=== PATIENT | female | born 1955 | race Caucasian/White ===

== ENCOUNTER 2021-04-01 20:23 | Emergency (ER) | payer MEDICARE, OTHER ==
[~2021-04-01] VITALS: Ht 157.5 cm; Wt 111.1 kg
[~2021-04-01 20:23] MED LIST: HUMIRA20 MG/0.4; LISINOPRIL10 MG; NAPROSYN500 MG PO; NORCO 5-325 TA1 EAC1 PO; PRAVASTATIN SOD20 MG; ZYRTEC10 M5
[2021-04-01] MEDS ORDERED: NASAL ALLERGY S13 ML (20:34)
[2021-04-01] MEDS ORDERED: TALTZ SYRI80 MG/1 ML (20:35)
[2021-04-01 20:57] LABS: ABSOLUTE BASOPHILS 0.1 thou/uL (0.0-0.2); ABSOLUTE EOSINOPHILS 0.2 thou/uL (0.0-0.7); ABSOLUTE LYMPHOCYTES 2.1 thou/uL (0.8-5.3); ABSOLUTE MONOCYTES 0.7 thou/uL (0.0-1.2); ABSOLUTE NEUTROPHILS 5.8 thou/uL (1.6-8.1); BASOPHILS 1.1 %; EOSINOPHILS 1.7 %; HEMATOCRIT 40.2 % (37.0-47.0); HEMOGLOBIN 13.4 gm/dL (12.0-15.0); LYMPHOCYTES 23.9 %; MCH 29.2 pg (26.0-34.0); MCHC 33.4 g/dL (28.0-37.0); MCV 87.5 fL (80.0-100.0); MONOCYTES 7.7 %; NUCLEATED RBCS 0 /100WBC; PLATELET COUNT* 286 thou/uL (150-400); POLYS 65.6 %; RDW-CV 13.7 % (10.5-14.5); WBC 8.8 thou/uL (4.0-11.0)
[2021-04-01 21:05] LABS: CALCIUM 9.2 mg/dL (8.5-10.1); CREATININE 0.9 mg/dL (0.6-1.3); POTASSIUM 4.4 mmol/L (3.5-5.1)
[2021-04-01 21:10] LABS: ALBUMIN 3.3 g/dL (3.4-5.0); TOTAL BILIRUBIN 0.3 mg/dL (<0.1-1.0); TOTAL PROTEIN 7.8 g/dL (6.4-8.2)
[2021-04-01 22:32] LABS: URINE BILIRUBIN NEGATIVE (Negative); URINE BLOOD NEGATIVE (Negative); URINE CLARITY CLEAR; URINE COLOR YELLOW; URINE GLUCOSE-RANDOM NEGATIVE (Negative); URINE KETONES NEGATIVE (Negative); URINE LEUKOCYTES-REFLEX NEGATIVE (Negative); URINE NITRITE-REFLEX NEGATIVE (Negative); URINE PROTEIN NEGATIVE (Negative); URINE SPECIFIC GRAVITY <= 1.005 (1.005-1.030); URINE UROBILINOGEN 0.2 E.U./dl (0.2-1.0)
[2021-04-01] MEDS ORDERED: FLAGYL500 M1 PO (22:47)
[2021-04-01] MEDS ORDERED: CIPROFLOXACIN500 M1 PO (22:47)
[2021-04-01] MEDS ORDERED: ENDOCET 7.5-321 EACH PO (22:47)
[2021-04-01] MEDS ORDERED: ZOFRAN ODT4 MG PO (22:47)
[2021-04-01 23:00] VITALS: BP 147/69
--- NOTE | 2021-04-03 09:01 | EKG ---
[place] [address] ELECTROCARDIOGRAM REPORT Name: GENEVA CROWLEY Room: 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
== END 2021-04-01 23:00 | disposition home or self-care (01) ==
LOC: M.ERS 20:23
PROVIDERS: Emergency Medicine
DX: K57.32 Diverticulitis of large intestine without perforation or abscess without bleeding (principal); I10 Essential (primary) hypertension; L40.9 Psoriasis, unspecified; Z90.711 Acquired absence of uterus with remaining cervical stump; Z79.899 Other long term (current) drug therapy; Z88.8 Allergy status to other drugs, medicaments and biological substances

== ENCOUNTER 2021-04-05 21:44 | Inpatient (IN) | payer MEDICARE, OTHER ==
[~2021-04-05] VITALS: Ht 157.5 cm; Wt 111.1 kg
[~2021-04-05 21:44] MED LIST changes: +CIPROFLOXACIN500 M1 PO; +ENDOCET 7.5-321 EACH PO; +FLAGYL500 M1 PO; -LISINOPRIL10 MG; +LISINOPRIL10 MG PO; +NASAL ALLERGY S13 ML; +TALTZ SYRI80 MG/1 ML; +ZOFRAN ODT4 MG PO
[2021-04-05 21:49] VITALS: BP 151/67
[2021-04-05 21:59] LABS: URINE BILIRUBIN NEGATIVE (Negative); URINE BLOOD NEGATIVE (Negative); URINE CLARITY CLEAR; URINE COLOR YELLOW; URINE GLUCOSE-RANDOM NEGATIVE (Negative); URINE KETONES NEGATIVE (Negative); URINE LEUKOCYTES NEGATIVE (Negative); URINE NITRITE NEGATIVE (Negative); URINE PROTEIN TRACE (Negative); URINE SPECIFIC GRAVITY >= 1.030 (1.005-1.030); URINE UROBILINOGEN 0.2 E.U./dl (0.2-1.0)
[2021-04-05 22:22] LABS: ABSOLUTE BASOPHILS 0.1 thou/uL (0.0-0.2); ABSOLUTE EOSINOPHILS 0.1 thou/uL (0.0-0.7); ABSOLUTE LYMPHOCYTES 1.9 thou/uL (0.8-5.3); ABSOLUTE MONOCYTES 0.7 thou/uL (0.0-1.2); ABSOLUTE NEUTROPHILS 6.5 thou/uL (1.6-8.1); HEMATOCRIT 38.8 % (37.0-47.0); HEMOGLOBIN 13.1 gm/dL (12.0-15.0); LYMPHOCYTES 20.4 %; MCH 29.3 pg (26.0-34.0); MCHC 33.7 g/dL (28.0-37.0); MCV 86.9 fL (80.0-100.0); MONOCYTES 7.5 %; MPV 6.6 fl. (7.2-11.1); NUCLEATED RBCS 0 /100WBC; PLATELET COUNT* 314 thou/uL (150-400); POLYS 70.1 %; RBC 4.46 mil/uL (4.20-5.00); RDW-CV 13.5 % (10.5-14.5); WBC 9.3 thou/uL (4.0-11.0)
[2021-04-05 22:32] LABS: CALCIUM 8.9 mg/dL (8.5-10.1); CREATININE 1.5 mg/dL (0.6-1.3); POTASSIUM 4.1 mmol/L (3.5-5.1)
[2021-04-05 22:35] LABS: ALBUMIN 3.1 g/dL (3.4-5.0); TOTAL BILIRUBIN 0.2 mg/dL (<0.1-1.0); TOTAL PROTEIN 7.2 g/dL (6.4-8.2)
[2021-04-06 05:30] VITALS: BP 136/87
[2021-04-06 09:30] VITALS: BP 124/63
[2021-04-06 13:21] LABS: ABSOLUTE EOSINOPHILS 0.1 thou/uL (0.0-0.7); ABSOLUTE LYMPHOCYTES 1.6 thou/uL (0.8-5.3); ABSOLUTE MONOCYTES 0.6 thou/uL (0.0-1.2); ABSOLUTE NEUTROPHILS 4.3 thou/uL (1.6-8.1); BASOPHILS 0.4 %; EOSINOPHILS 1.6 %; HEMATOCRIT 36.4 % (37.0-47.0); HEMOGLOBIN 12.2 gm/dL (12.0-15.0); LYMPHOCYTES 23.5 %; MCH 29.4 pg (26.0-34.0); MCHC 33.5 g/dL (28.0-37.0); MCV 87.6 fL (80.0-100.0); MONOCYTES 9.6 %; MPV 6.6 fl. (7.2-11.1); NUCLEATED RBCS 0 /100WBC; PLATELET COUNT* 275 thou/uL (150-400); POLYS 64.9 %; RBC 4.16 mil/uL (4.20-5.00); RDW-CV 13.4 % (10.5-14.5); WBC 6.7 thou/uL (4.0-11.0)
[2021-04-06 13:38] LABS: ALBUMIN 2.7 g/dL (3.4-5.0); CALCIUM 8.5 mg/dL (8.5-10.1); POTASSIUM 4.1 mmol/L (3.5-5.1); TOTAL BILIRUBIN 0.2 mg/dL (<0.1-1.0); TOTAL PROTEIN 6.5 g/dL (6.4-8.2)
[2021-04-06 14:55] LABS: AMP/METHAMP Negative (Negative); BARBITURATES Negative (Negative); BENZODIAZEPINES Negative (Negative); COCAINE Negative (Negative); METHADONE Negative (Negative); OPIATES Negative (Negative); PCP Negative (Negative); THC Negative (Negative)
[2021-04-06] MEDS ORDERED: PHENERGAN 25 MG25 MG PO (15:52)
[2021-04-06] MEDS ORDERED: OMEPRAZOLE40 MG PO (15:53)
[2021-04-06] MEDS ORDERED: AZITHROMYCIN500 MG PO (15:54)
[2021-04-06 15:59] VITALS: BP 154/75
--- NOTE | 2021-04-06 17:25 | EKG ---
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1955 Requested By: Jim Badillo Order Number: [id number] MD: Greg Harrington Measurements Intervals [place] Rate: 119 P: 59 SC: 177 QRS: -39 QRSD: 84 T: 144 QT: 293 QTc: 413 Interpretive Statements Sinus tachycardia Left anterior fascicular block Baseline wander in lead(s) II,III,aVR,aVL,aVF Compared to ECG 04/01/2021 20:30:34 No significant changes noted Electronically Signed On 04-06-2021 17:25:35 CDT by Greg Harrington [email or web address] <ELECTRONICALLY SIGNED> By: Greg Harrington MD, FACC 04/06/21 1725 54 54 Greg Harrington MD, FAC /EPI
[2021-04-06 17:30] VITALS: BP 149/72
[2021-04-06 20:40] VITALS: BP 149/72
[2021-04-06 21:30] VITALS: BP 155/67
[2021-04-07 05:06] LABS: ABSOLUTE BASOPHILS 0.1 thou/uL (0.0-0.2); ABSOLUTE EOSINOPHILS 0.1 thou/uL (0.0-0.7); ABSOLUTE MONOCYTES 0.6 thou/uL (0.0-1.2); ABSOLUTE NEUTROPHILS 4.4 thou/uL (1.6-8.1); BASOPHILS 0.8 %; EOSINOPHILS 1.8 %; HEMATOCRIT 37.1 % (37.0-47.0); HEMOGLOBIN 12.5 gm/dL (12.0-15.0); MCH 29.3 pg (26.0-34.0); MCHC 33.6 g/dL (28.0-37.0); MCV 87.3 fL (80.0-100.0); MONOCYTES 8.8 %; NUCLEATED RBCS 0 /100WBC; PLATELET COUNT* 296 thou/uL (150-400); POLYS 60.6 %; RBC 4.25 mil/uL (4.20-5.00); RDW-CV 13.7 % (10.5-14.5); WBC 7.2 thou/uL (4.0-11.0)
[2021-04-07 05:18] LABS: PREALBUMIN 16.7 mg/dL (18.0-35.7)
[2021-04-07 05:19] LABS: ALBUMIN 2.9 g/dL (3.4-5.0); CALCIUM 8.9 mg/dL (8.5-10.1); CREATININE 0.9 mg/dL (0.6-1.3); POTASSIUM 4.2 mmol/L (3.5-5.1); TOTAL BILIRUBIN 0.3 mg/dL (<0.1-1.0); TOTAL PROTEIN 7.1 g/dL (6.4-8.2)
[2021-04-07 08:00] VITALS: BP 145/75
[2021-04-07 16:40] VITALS: BP 147/70
[2021-04-07 20:45] VITALS: BP 139/67
[2021-04-08] MEDS ORDERED: ERYTHROMYCIN250 M1 PO (00:32)
[2021-04-08 07:51] VITALS: BP 111/66
[2021-04-08 10:08] VITALS: BP 111/66
--- NOTE | 2021-04-09 16:49 | CON ---
[address] [address] CONSULTATION Name: GENEVA CROWLEY Room: [address] M.R.#: [id number] Admission: 04/06/21 Attend Phys: Elliott López Discharge: 04/08/21 Date of : 55 Report #: [id number] THIS REPORT FOR: cc: Willie Hull MD, Tuongvan T. MD Namin, Farid M. MD ~ cc: Willie Hull MD DATE OF CONSULTATION: 04/06/2021 PRIMARY CARE PHYSICIAN: Willie Hull MD Please note at the time of this dictation, the patient was seen and physically examined by myself. REASON FOR CONSULTATION: Abdominal pain, diverticulitis. HISTORY OF PRESENT ILLNESS: This is a 66-year-old female who presented to the emergency room for a second time during the last week. Initially, the patient presented to the emergency room on Sunday 04/01 for having left-sided abdominal pain and was diagnosed with diverticulitis and was sent home on Cipro and Flagyl. She states she ran a low-grade fever and she had some associated chills. She states she has to take Linzess for her bowels to move because she does have a history of constipation; however, she cannot recall the dose and she does not take it on a daily basis. She states yesterday she started having pain more on the right side after her bowels moved several times up into her right ribs and up into her back and right shoulder area. She states she felt nauseated with all of that, but no vomiting. The patient did have an EGD with Dr. Contreras back in January of this year for her recurrent abdominal pain and difficulty swallowing. Her stomach was completely normal. Esophagus was normal. He dilated her with a 54-Wolof with no resistance noted. Her last colonoscopy was done in 05/2019. She had 5 colon polyps removed and external hemorrhoids and a recall in 3 years. At both times, the patient was having this abdominal discomfort and he recommended that she have had a hepatobiliary scan. The patient states she was scheduled for that after her EGD in January, but something came up and she was unable to make it at diagnostic imaging and never got that completed. ALLERGIES: REGLAN. MEDICATIONS FROM HOME: Include pravastatin, lisinopril, Zyrtec and Taltz syringe daily. PAST MEDICAL HISTORY: Hypertension, psoriasis, [place] [address] CONSULTATION Name: GENEVA CROWLEY Room: [address]#: [id number] Admission: 04/06/21 Attend Phys: Elliott López Discharge: 04/08/21 Date of : 55 Report #: [id number] PAST SURGICAL HISTORY: Hysterectomy and a left knee scraping in 2013. FAMILY HISTORY: Negative for any GI or female cancers. SOCIAL HISTORY: She denies any alcohol, tobacco or illegal drug use. REVIEW OF SYSTEMS: Twelve-point review of systems is essentially negative except what is mentioned in the HPI. PHYSICAL EXAMINATION: VITAL SIGNS: Temperature 37.3, pulse 96, respirations 16, blood pressure 120/64. HEART: Regular rate and rhythm. LUNGS: Clear. ABDOMEN: Soft, positive bowel sounds in all four quadrants with tenderness noted on the epigastric to right upper quadrant and on the right side with some very mild tenderness on the left lower still. LABORATORY DATA: Hemoglobin is 13.1, white count is 9.3, platelets 314. LFTs are completely normal. Her GFR is 35. CT scan on 04/01 showed acute sigmoid diverticulitis. On her CT scan today, it showed enlarged liver, gallbladder appeared normal and having some mild fat stranding that was nonspecific. IMPRESSION: 1. Abdominal pain, right upper quadrant and right side. 2. Nausea. 3. Gastroesophageal reflux disease. 4. Recent history of diverticulitis in the sigmoid colon on 04/01. 5. Constipation. 6. Chronic kidney disease. PLAN: 1. Hepatobiliary scan today to evaluate her gallbladder. 2. Continue her antibiotics. 3. Patient will need a colonoscopy in 6-8 weeks once she gets over her diverticulitis. 4. Further recommendations to be made after Dr. Garcia sees the patient and the [place] [address] CONSULTATION Name: GENEVA CROWLEY SVEN Room: [address] [place] ..#: [id number] Admission: 04/06/21 Attend Phys: Elliott López Discharge: 04/08/21 Date of : 55 Report #: [id number] Thank you for allowing us to participate in this patient's care. Please do not hesitate to call with any questions regarding this consult. <ELECTRONICALLY SIGNED> By: Rudolph Garcia MD 04/09/21 1649 0945 [id number] Garcia MD /nt
== END 2021-04-08 12:13 | disposition home or self-care (01) | DRG 391 ==
LOC: M.ERS 21:44 → M.3W 04-06 01:08 → M.TBA-ER 04-06 01:08 → M.3W 04-06 22:42
PROVIDERS: Internal Medicine; Physician Assistant; ADMIT Internal Medicine; ATTEND Internal Medicine
DX: K57.32 Diverticulitis of large intestine without perforation or abscess without bleeding (principal); N17.0 Acute kidney failure with tubular necrosis; Z68.41 Body mass index [BMI] 40.0-44.9, adult; R07.81 Pleurodynia; E66.01 Morbid (severe) obesity due to excess calories; Z20.822 Contact with and (suspected) exposure to COVID-19; K21.9 Gastro-esophageal reflux disease without esophagitis; N18.9 Chronic kidney disease, unspecified; K59.00 Constipation, unspecified; K31.84 Gastroparesis; I12.9 Hypertensive chronic kidney disease with stage 1 through stage 4 chronic kidney disease, or unspecified chronic kidney disease; M35.3 Polymyalgia rheumatica; Z90.710 Acquired absence of both cervix and uterus; Z88.8 Allergy status to other drugs, medicaments and biological substances; Z28.21 Immunization not carried out because of patient refusal